=== PATIENT | female | born 1975 | race Caucasian/White ===

== ENCOUNTER → 2016-08-20 | Outpatient (CLI) | payer OTHER ==
[~2016-08-20] MED LIST: ACHD5005 PO; ALBU2.5V4; AZIT500T5; CEFD300C3 PO; CEFU500T63; MAGN100T6 PO; METO-352; MULT-646 PO; NEBI5TAB8 PO; NFPRILOC40 PO; NITR-65 PO; ONDAN4ODT PO; SACC250C9 PO; TURM500C7 PO
--- OUTSIDE RECORDS SUMMARY | 2016-08-20 13:15 | XMS REPORT | Continuity of Care Document ---
Author Author [facility] Organization 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 Role Phone WENDY LANDA DO PCP Insurance Providers Payer Name Policy Number Subscriber Name Relationship [employer] [id number] Lian Rodriguez Self / Same As Patient Advance Directives Directive Response Recorded Date/Time Advance Directives No 12/08/15 10:40am Resuscitation Status Full Code 12/08/15 10:40am Chief Complaint and Reason for Visit Chief Complaint Head/Cervical Problems Reason for Visit Acute sinusitis Problems Active Problems Medical Problem Onset Date Status Acute sinusitis Unknown Acute Chest pain Unknown Acute Medications Current Home Medications Medication Dose Units Route Directions Days/Qty Instructions Start Date Multivits,Th W-Fe,Other Min 1 Each 1 Each Oral Daily 07/21/15 Omeprazole 40 Mg 40 Mg Oral Daily 07/21/15 Metoprolol Succinate 50 Mg 12/08/15 Cefdinir (Omnicef) 300 Mg 300 Mg Oral Twice A Day 14 12/08/15 Past Home Medications Medication Directions Ordered Status Ondansetron Hcl 4 Mg Tab, 4 Mg Oral Every 4HRS 02/21/09 Discontinued Nitrofurantoin Macrocrystals 100 Mg Capsule, 1 Each Oral Twice A Day Discontinued Acetaminophen/Hydrocodone Bitart 1 Each Tablet, 1 - 2 Each Oral Q 4 Hours Prn Pain 05/29/11 Discontinued Albuterol Sulfate 2.5 Mg/3 Ml Vial.neb, 07/21/15 Discontinued Cefuroxime Axetil 500 Mg Tablet, 07/21/15 Discontinued Azithromycin 500 Mg Tablet, 07/21/15 Discontinued Magnesium Citrate 100 Mg Tablet, 100 Mg Oral Daily 07/21/15 Discontinued Turmeric Root Extract 500 Mg Capsule, 500 Mg Oral Daily 07/21/15 Discontinued Saccharomyces Boulardii 250 Mg Capsule, 250 Mg Oral Daily 07/21/15 Discontinued Nebivolol Hcl 5 Mg Tablet, 5 Mg Oral Daily 07/21/15 Discontinued Cefdinir (Omnicef) 300 Mg Capsule, 300 Mg Oral Twice A Day 07/21/15 Discontinued Social History Social History Problem Response Recorded Date/Time Alcohol Use Denies Use 12/08/2015 10:40am Recreational Drug Use No 12/08/2015 10:40am Recent Foreign Travel No 12/08/2015 10:34am Recent Infectious Disease Exposure No 12/08/2015 10:34am Hospitalization with Isolation Denies 12/08/2015 10:34am Smoking Status Never a Smoker 12/08/2015 10:40am Query Response Start Date Stop Date Smoking Status Never a Smoker Hospital Discharge Instructions No hospital discharge instructions. Plan of Care Discharge Date 12/08/15 11:30am Disposition 01 HOME, SELF-CARE Condition at Discharge Stable/Unchanged Instructions/Education Provided Sinusitis (ED) Cluster Headache (ED) Prescriptions See Medication Section Referrals WENDY LANDA DO - Primary Care Physician Additional Instructions/Education All discharge instructions reviewed with patient and/or family. Voiced understanding. Use Tylenol or ibuprofen for fever aches and pains Take Omnicef as directed Functional Status Query Response Date Recorded Patient Orientation Person Place Time Situation December 08, 2015 10:50am Allergies, Adverse Reactions, Alerts Allergen Type Severity Reaction Status Last Updated Penicillins ([id number]) Allergy Unknown Active 07/21/15 Immunizations No immunization records. Vital Signs Acute Vital Signs Vital Response Date/Time Temperature (Fahrenheit) 98 degrees F (97.6 - 99.5) 12/08/2015 10:34am Temperature (Calculated Celsius) 36.6696 degrees C (36.4 - 37.5) 12/08/2015 10:34am Temperature Source Temporal 12/08/2015 10:34am Pulse Rate (adult) 98 bpm (60 - 90) 12/08/2015 10:34am Respiratory Rate 18 bpm (12 - 24) 12/08/2015 10:34am O2 Sat by Pulse Oximetry 100 % (88 - 100) 12/08/2015 10:34am Blood Pressure 137/76 mm Hg 12/08/2015 10:34am Blood Pressure Mean 96 mm Hg 12/08/2015 10:34am Pain Numeric Pain Scale 8 12/08/2015 10:34am Height (Feet) 5 feet 12/08/2015 10:34am Height (Inches) 10 inches 12/08/2015 10:34am Height (Calculated Centimeters) 177.059800 cm 12/08/2015 10:34am Weight (Pounds) 300 pounds 12/08/2015 10:34am Weight (Calculated Kilograms) 136.468020 kilograms 12/08/2015 10:34am Height 5 ft 10 in Weight 300 lb Body Mass Index 43.0 kg/m^2 Results No known relevant diagnostic tests, laboratory data and/or discharge summary. Procedures No known history of procedures. Encounters Encounter Location Arrival/Admit Date Discharge/Depart Date Attending Provider Registered Emergency Room [facility] 12/08/15 10:33am DEONNA GUZMAN MD Recent Diagnosis
[2016-08-21 13:45] LABS: DIL RUSSELL VIPER VENOM SCREEN 0.74 ratio (0.00-1.20)
[2016-08-21 13:46] LABS: LUPUS ANTICOAGULANT PTT 34.6 Seconds (24.4-41.7)
[2016-08-22 11:55] LABS: PT REF RML 13.6 SEC (10.5-15.7)
[2016-08-22 11:59] LABS: PTT LUPUS 33.2 SEC (20.6-39.2)
[2016-08-25 11:24] LABS: CLIN PATHOLOGY REPORT FOOTNOTE
== END ==
LOC: LAB 13:11
PROVIDERS: ATTEND Family Medicine
DX: M25.50 Pain in unspecified joint (principal)
CPT/HCPCS: 36415; 84443; 85610; 85613; 85652; 85705; 85730; 86038; 86146; 86147

== ENCOUNTER → 2016-08-21 | Outpatient (CLI) | payer OTHER ==
--- OUTSIDE RECORDS SUMMARY | 2016-08-21 09:20 | XMS REPORT | Continuity of Care Document ---
Author Author [facility] Organization [facility] Address Unknown Phone Unavailable Care Team Providers Care Public Health Physician Name Role Phone WENDY LANDA DO PCP Insurance Providers Payer Name Policy Number Subscriber Name Relationship [employer] [id number] Lian Rodriguez Self / Same As Patient [...] Type Severity Reaction Status Last Updated Penicillins ([id number]) Allergy Unknown Active 07/21/15 Immunizations No immunization [...] 10 inches 12/08/2015 10:34am Height (Calculated Centimeters) 177.623020 cm 12/08/2015 10:34am Weight (Pounds) 300 pounds 12/08/2015 10:34am Weight (Calculated Kilograms) 136.057479 kilograms 12/08/2015 10:34am Height 5 ft 10 in Weight 300 lb Body Mass Index 43.0 kg/m^2 Results No known relevant diagnostic tests, laboratory data and/or discharge summary. Procedures No known history of procedures. Encounters Encounter Location Arrival/Admit Date Discharge/Depart Date Attending Provider Registered Emergency Room [facility] 12/08/15 10:33am DEONNA GUZMAN MD Recent Diagnosis
--- NOTE | 2016-08-21 15:47 | Diagnostic Imaging Report ---
PROCEDURE: CT head without contrast. TECHNIQUE: Multiple contiguous axial images were obtained through the brain without the use of intravenous contrast. INDICATION: Head injury. History of left parietal craniotomy. FINDINGS: There is a left parietal craniotomy and plate and screws fixation of the skull. There is no intracranial hemorrhage, edema, or mass effect. The brain parenchyma and flores-white matter differentiation appear preserved. There is no hydrocephalus. No extra-axial fluid collection or hemorrhage. The visualized portions of the orbits and paranasal sinuses appear clear. The frontal sinuses are underdeveloped. IMPRESSION: No acute process. Dictated by: Dictated on workstation # [id number]
== END ==
LOC: RAD 09:18
PROVIDERS: ATTEND Family Medicine
DX: S09.90XA Unspecified injury of head, initial encounter (principal); X58.XXXA Exposure to other specified factors, initial encounter; Y99.8 Other external cause status
CPT/HCPCS: 70450

== ENCOUNTER → 2016-10-24 | Outpatient (CLI) | payer OTHER ==
--- NOTE | 2016-10-24 11:26 | Diagnostic Imaging Report ---
INDICATION: Shortness of breath and chest pain. PA and lateral chest. Heart size and pulmonary vascularity are normal. Lungs are clear. There are no effusions or pneumothoraces. IMPRESSION: Negative chest. Dictated by: Dictated on workstation # [id number]
[2016-10-24 11:32] LABS: BASOPHILS % (AUTO) 1 % (0-10); EOSINOPHILS # (AUTO) 0.2 10^3/uL (0.0-0.3); EOSINOPHILS % (AUTO) 3 % (0-10); LYMPHOCYTES # (AUTO) 2.4 X 10^3 (1.0-4.0); LYMPHOCYTES % (AUTO) 35 % (12-44); MEAN CORPUSCULAR HEMOGLOBIN 27 PG (25-34); MEAN CORPUSCULAR HGB CONC 33 G/DL (32-36); MEAN CORPUSCULAR VOLUME 84 FL (80-99); MEAN PLATELET VOLUME 11.4 FL (7.4-10.4); MONOCYTES # (AUTO) 0.4 X 10^3 (0.0-1.0); MONOCYTES % (AUTO) 6 % (0-12); NEUTROPHILS # (AUTO) 3.9 X 10^3 (1.8-7.8); NEUTROPHILS % (AUTO) 56 % (42-75); PLATELET COUNT 265 10^3/uL (130-400); RED BLOOD COUNT 5.37 10^6/uL (4.35-5.85); RED CELL DISTRIBUTION WIDTH 14.6 % (10.0-14.5); WHITE BLOOD COUNT 6.9 10^3/uL (4.3-11.0)
[2016-10-24 12:15] LABS: ALANINE AMINOTRANSFERASE 29 U/L (0-55); ALBUMIN 4.1 G/DL (3.2-4.5); ANION GAP 7 MMOL/L (5-14); ASPARTATE AMINO TRANSFERASE 20 U/L (5-34); BILIRUBIN,TOTAL 0.4 MG/DL (0.1-1.0); BLOOD UREA NITROGEN 9 MG/DL (7-18); BUN/CREATININE RATIO 13; CALCIUM 9.2 MG/DL (8.5-10.1); CARBON DIOXIDE 26 MMOL/L (21-32); CHLORIDE 104 MMOL/L (98-107); CREATINE KINASE 76 U/L (29-168); GFR ESTIMATED > 60; GLUCOSE 83 MG/DL (70-105); POTASSIUM 3.8 MMOL/L (3.6-5.0); SODIUM 137 MMOL/L (135-145); TOTAL PROTEIN 7.4 G/DL (6.4-8.2)
[2016-10-24 12:38] LABS: MYOGLOBIN SERUM 24.3 NG/ML (10.0-92.0); THYROID STIMULATING HORMONE 3.06 UIU/ML (0.35-4.94); TROPONIN I < 0.30 NG/ML (<0.30)
== END ==
LOC: CARD 10:57
PROVIDERS: ATTEND Nurse Practitioner Family
DX: R06.02 Shortness of breath (principal); R07.89 Other chest pain
CPT/HCPCS: 36415; 71020; 80053; 82550; 82553; 83874; 83880; 84439; 84443; 84484; 85025; 93005

== ENCOUNTER → 2017-03-18 | Outpatient (CLI) | payer OTHER ==
--- NOTE | 2017-03-18 10:59 | Diagnostic Imaging Report ---
PROCEDURE: CT abdomen and pelvis without contrast. TECHNIQUE: Multiple contiguous axial images were obtained through the abdomen and pelvis without the use of intravenous contrast. INDICATION: Upper abdominal pain. FINDINGS: The lung bases appear clear. The liver, the pancreas, the adrenal glands, and the gallbladder appear unremarkable for an unenhanced exam. The spleen is 14.1 x 5.5 x 10.5 cm. No hydronephrosis is seen. In the right kidney, there is a fluid attenuation lesion measuring 2.3 cm suggestive of a cyst. This was seen and appeared simple based on ultrasound of the kidneys from 04/04/2016. No urinary tract stone is identified. Calcifications of the pelvis appears to be related to phleboliths. There is an IUD in the uterus which appears to be in good position. The uterus and adnexa appear grossly unremarkable. There is no bowel obstruction. The appendix appears normal. Small to moderate amounts of fecal material seen in the colon. The SI joints demonstrate mild degenerative changes and vacuum phenomenon seen. IMPRESSION: Borderline splenic size. No acute process. Dictated by: Dictated on workstation # [id number]
--- NOTE | 2017-03-18 10:59 | Diagnostic Imaging Report ---
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 Tumor was removed with a plate placed about a year ago. Couple of months ago patient starting having pain just below plate. Patient has intense headache last week and nausea. Exam: Axial CT scan of the brain performed without IV contrast. Comparison: Head CT without IV contrast dated 08/21/2016. Findings: Again seen postop changes with left posterior skull craniotomy and resection of previously seen lesion. Skull plate is seen in the area. There is slight progression of bony growth in the area which may represent callus formation. There is no masslike changes seen. There is no significant extracranial scalp or intracranial abnormality beneath the postop area. Otherwise, the skull, extracranial soft tissue, and orbits are unremarkable. There is no evidence of acute cerebral infarct, intracranial hemorrhage, or gross mass effect. There is normal flores-white matter distinction. The brain parenchymal volume appears appropriate for patient's age. There is no significant midline shift or herniation. There is no evidence of hydrocephalus. The basal cisterns are unremarkable. The paranasal sinuses are unremarkable. Impression: 1: There is no evidence of acute intracranial process. 2: Left posterior skull craniotomy/resection with metallic plate placed. There is no evidence of significant abnormality in the area. There is no masslike growth seen. Likely mild callus formation seen in the craniotomy site. 3: Otherwise unremarkable CT scan of the brain. Dictated by: Dictated on workstation # [id number]
== END ==
LOC: RAD 10:16
PROVIDERS: ATTEND Family Medicine
DX: R51 Headache (principal); R10.10 Upper abdominal pain, unspecified; Z98.890 Other specified postprocedural states
CPT/HCPCS: 70450; 74176

== ENCOUNTER → 2017-03-19 | Outpatient (CLI) | payer OTHER ==
[2017-03-19 08:04] LABS: BASOPHILS % (AUTO) 1 % (0-10); EOSINOPHILS # (AUTO) 0.3 10^3/uL (0.0-0.3); EOSINOPHILS % (AUTO) 4 % (0-10); LYMPHOCYTES # (AUTO) 2.3 X 10^3 (1.0-4.0); LYMPHOCYTES % (AUTO) 36 % (12-44); MEAN CORPUSCULAR HEMOGLOBIN 28 PG (25-34); MEAN CORPUSCULAR HGB CONC 33 G/DL (32-36); MEAN CORPUSCULAR VOLUME 85 FL (80-99); MEAN PLATELET VOLUME 10.8 FL (7.4-10.4); MONOCYTES # (AUTO) 0.5 X 10^3 (0.0-1.0); MONOCYTES % (AUTO) 7 % (0-12); NEUTROPHILS # (AUTO) 3.3 X 10^3 (1.8-7.8); NEUTROPHILS % (AUTO) 52 % (42-75); PLATELET COUNT 258 10^3/uL (130-400); RED BLOOD COUNT 5.26 10^6/uL (4.35-5.85); RED CELL DISTRIBUTION WIDTH 14.5 % (10.0-14.5); WHITE BLOOD COUNT 6.4 10^3/uL (4.3-11.0)
[2017-03-19 08:18] LABS: PROTHROMBIN TIME PATIENT 13.2 SEC (12.2-14.7)
[2017-03-19 08:27] LABS: ALANINE AMINOTRANSFERASE 29 U/L (0-55); ALBUMIN 3.9 GM/DL (3.2-4.5); ANION GAP 7 MMOL/L (5-14); ASPARTATE AMINO TRANSFERASE 17 U/L (5-34); BILIRUBIN,TOTAL 0.4 MG/DL (0.1-1.0); BLOOD UREA NITROGEN 9 MG/DL (7-18); BUN/CREATININE RATIO 13; CALCIUM 9.2 MG/DL (8.5-10.1); CARBON DIOXIDE 27 MMOL/L (21-32); CHLORIDE 105 MMOL/L (98-107); CREATININE SERUM 0.71 MG/DL (0.60-1.30); GFR ESTIMATED > 60; GLUCOSE 94 MG/DL (70-105); SODIUM 139 MMOL/L (135-145); TOTAL PROTEIN 7.5 GM/DL (6.4-8.2)
[2017-03-19 08:47] LABS: THYROID STIMULATING HORMONE 2.62 UIU/ML (0.35-4.94)
== END ==
LOC: LAB 07:43
PROVIDERS: ATTEND Family Medicine
DX: R53.83 Other fatigue (principal); R35.8 Other polyuria; R63.1 Polydipsia; N93.9 Abnormal uterine and vaginal bleeding, unspecified
CPT/HCPCS: 36415; 80053; 83036; 83540; 84443; 85025; 85610; 85730

== ENCOUNTER 2017-09-07 14:44 | Emergency (ER) | payer OTHER ==
[~2017-09-07] VITALS: Ht 177.8 cm; Wt 136.2 kg
[2017-09-07 15:22] LABS: BASOPHILS % (AUTO) 0 % (0-10); EOSINOPHILS # (AUTO) 0.2 10^3/uL (0.0-0.3); EOSINOPHILS % (AUTO) 3 % (0-10); HEMATOCRIT 44 % (35-52); HEMOGLOBIN 14.6 G/DL (11.5-16.0); LYMPHOCYTES % (AUTO) 38 % (12-44); MEAN CORPUSCULAR HEMOGLOBIN 28 PG (25-34); MEAN CORPUSCULAR HGB CONC 33 G/DL (32-36); MEAN CORPUSCULAR VOLUME 85 FL (80-99); MEAN PLATELET VOLUME 10.9 FL (7.4-10.4); MONOCYTES # (AUTO) 0.6 X 10^3 (0.0-1.0); MONOCYTES % (AUTO) 8 % (0-12); NEUTROPHILS % (AUTO) 51 % (42-75); PLATELET COUNT 278 10^3/uL (130-400); RED CELL DISTRIBUTION WIDTH 14.1 % (10.0-14.5)
[2017-09-07] MEDS ORDERED: CAL/MAG/ZINC PO (15:29)
[2017-09-07] MEDS ORDERED: FAMO40TA6 PF (15:29)
[2017-09-07] MEDS ORDERED: KETOROLAC 30 MG/ML VIAL IVP ONE (15:30)
[2017-09-07] MEDS ORDERED: ASPIRIN 81 MG CHEW (CHILDREN'S ASA) PO ONE (15:30)
--- NOTE | 2017-09-07 15:31 | ED Chest Pain ---
General Chief Complaint: Chest Pain Stated Complaint: CP X 1DAY Nursing Triage Note: C/O OF R-CHEST ET SHOULDER PAIN STARTING LAST NIGHT @5 PM. RADIATES TO L-CHEST ET SHOULDER. HAS HX OF REFLUX BUT SAYS IT'S NOT FELT LIKE THIS BEFORE. STATES PAIN IS CONSTANT ET SHARP. RATES R-CHEST AT "7" Nursing Sepsis Screen: No Definite Risk Source: patient History of Present Illness Date Seen by Provider: Sep 07, 2017 Time Seen by Provider: 15:10 Initial Comments PT ARRIVES VIA POV FROM HOME C/O RIGHT UPPER CHEST PAIN SINCE 1700 LAST PM--DOES NOT RECALL WHAT SHE WAS DOING WHEN PAIN BEGAN, BUT WAS "JUST HANGING OUT" PAIN IN CHEST IS CONSTANT, AND NOTHING WORSENS OR IMPROVES PAIN --HAS BEEN WORSE SINCE MID MORNING TODAY OCCASIONALLY HAS RIGHT, THEN LEFT SHOULDER PAIN--THOSE SYMPTOMS COME AND GO NO CHEST PAIN OR PAIN WITH BREATHING NO SHORTNESS OF BREATH OCCASIONALLY IT FEELS LIKE HER HEART IS BEATING FAST, BUT HAS NOT CHECKED HER PULSE AT ANY TIME NO SWELLING IN LEGS/ FEET OR PAIN IN CALVES NO SWEATS HAS HAD SLIGHTLY DECREASED APPETITE AND SLIGHT NAUSEA TODAY, BUT HAS CONTINUED TO EAT NORMAL--LAST ATE AROUND 2 HOURS AGO NO FEVER NO COUGH OR RECENT ILLNESS PT HAS FIBROMYALGIA AND GERD--TOOK NORMAL DOSE OF PEPCID THIS AM, OTHERWISE HAS NOT TAKEN ANYTHING ELSE FOR SYMPTOMS/ HAS NOT TAKEN ANYTHING FOR PAIN 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 LANDA Allergies and Home Medications Allergies Coded Allergies: omeprazole (Unverified Allergy, Severe, 09/07/17) FELT LIKE SHE COULDN'T BREATH Penicillins (Unverified Allergy, Unknown, 07/21/15) Home Medications Cyclobenzaprine HCl 10 Mg Tablet, 10 MG PO Q8H Prescribed by: REMINGTON LAUGHLIN on 09/07/17 162 Famotidine 40 Mg Tablet, 40 MG PF BID, (Reported) Methylprednisolone 4 Mg Tab.ds.pk, 4 MG PO UD Prescribed by: REMINGTON LAUGHLIN on 09/07/17 162 Multivits,Th W-Fe,Other Min 1 Each Tablet, 1 EACH PO DAILY, (Reported) [Héctor/Mag/Zinc] , 1 CAP PO DAILY, (Reported) Patient Home Medication List Home Medication List Reviewed: Yes Review of Systems Constitutional: No chills, No diaphoresis, No dizziness, No fever EENTM: No Symptoms Reported Respiratory: No Symptoms Reported Cardiovascular: See HPI, Chest Pain, Denies Edema, Denies Lightheadedness, Palpitations, Denies Syncope Gastrointestinal: See HPI, Denies Abdominal Pain, Denies Constipated, Denies Diarrhea, Nausea, Poor Appetite, Denies Poor Fluid Intake, Denies Vomiting Genitourinary: No Symptoms Reported Musculoskeletal: see HPI, No back pain, other (BILATERAL SHOULDER PAIN ) Skin: no symptoms reported Psychiatric/Neurological: No Symptoms Reported Endocrine: No Symptoms Reported Hematologic/Lymphatic: No Symptoms Reported Past Ickyczx-Wylwtr-Uvwplr Hx Patient Social History Alcohol Use: Denies Use Recreational Drug Use: No Smoking Status: Never a Smoker 2nd Hand Smoke Exposure: No Recent Foreign Travel: No Contact w/Someone Who Travel: No Recent Infectious Disease Expo: No Physical Abuse: No Sexual Abuse: No Surgeries History of Surgeries: Yes (BENIGN TUMOR REMOVED FROM SKULL 2 YEARS AGO) Surgeries: Section Respiratory History of Respiratory Disorde: No Cardiovascular History of Cardiac Disorders: Yes Cardiac Disorders: Hypertension Neurological History of Neurological Disord: Yes (BENIGN TUMOR REMOVED FROM SKULL. OCCASIONALLY HAS HEAD PAIN AT THIS SITE.) Genitourinary History of Genitourinary Disor: No Gastrointestinal History of Gastrointestinal Di: Yes Gastrointestinal Disorders: Gastroesophageal Reflux Musculoskeletal History of Musculoskeletal Dis: Yes Musculoskeletal Disorders: Fibromyalgia Endocrine History of Endocrine Disorders: No HEENT History of HEENT Disorders: No Cancer History of Cancer: No Psychosocial History of Psychiatric Problem: No Suicide Risk Score: 0 Integumentary History of Skin or Integumenta: No Blood Transfusions History of Blood Disorders: No Family Medical History Significant Family History: No Pertinent Family Hx Physical Exam Vital Signs Vital Signs - First Documented 09/07/17 14:50 Temp 98.0 Pulse 92 Resp 18 B/P (MAP) 152/83 (106) Pulse Ox 95 O2 Delivery Room Air Capillary Refill : Less Than 3 Seconds General Appearance: No Apparent Distress, Obese HEENT: PERRL/EOMI Neck: Full Range of Motion, Normal Inspection, Non Tender, Supple, No Carotid Bruit, No JVD Respiratory: Normal Breath Sounds, No Accessory Muscle Use, No Respiratory Distress, Other (TENDERNESS TO RIGHT UPPER CHEST AND BILATERAL ANTERIOR SHOULDERS--PALPATION REPRODUCES PAIN ) Cardiovascular: Regular Rate, Rhythm, No Gallop, No JVD, No Murmur, Normal Peripheral Pulses, Other (TRACE EDEMA BILATERALLY) Gastrointestinal: Normal Bowel Sounds, No Organomegaly, No Pulsatile Mass, Non Tender, Soft Extremity: Normal Capillary Refill, Normal Range of Motion, Non Tender, No Calf Tenderness, Pedal Edema (TRACE BILATERALLY) Neurologic/Psychiatric: Alert, Oriented x3, No Motor/Sensory Deficits, Normal 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, 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 Norm as Tested Skin: Normal Color, Warm/Dry, No Rash Progress/Results/Core Measures Results/Orders Lab Results Laboratory Tests Test 09/07/17 15:03 Range/Units White Blood Count 8.0 4.3-11.0 10^3/uL Red Blood Count 5.20 4.35-5.85 10^6/uL Hemoglobin 14.6 11.5-16.0 G/DL Hematocrit 44 35-52 % Mean Corpuscular Volume 85 80-99 FL Mean Corpuscular Hemoglobin 28 25-34 PG Mean Corpuscular Hemoglobin Concent 33 32-36 G/DL Red Cell Distribution Width 14.1 10.0-14.5 % Platelet Count 278 130-400 10^3/uL Mean Platelet Volume 10.9 H 7.4-10.4 FL Neutrophils (%) (Auto) 51 42-75 % Lymphocytes (%) (Auto) 38 12-44 % Monocytes (%) (Auto) 8 0-12 % Eosinophils (%) (Auto) 3 0-10 % Basophils (%) (Auto) 0 0-10 % Neutrophils # (Auto) 4.0 1.8-7.8 X 10^3 Lymphocytes # (Auto) 3.0 1.0-4.0 X 10^3 Monocytes # (Auto) 0.6 0.0-1.0 X 10^3 Eosinophils # (Auto) 0.2 0.0-0.3 10^3/uL Basophils # (Auto) 0.0 0.0-0.1 10^3/uL Prothrombin Time 13.9 12.2-14.7 SEC INR Comment 1.1 0.8-1.4 Activated Partial Thromboplast Time 32 24-35 SEC Sodium Level 136 135-145 MMOL/L Potassium Level 3.8 3.6-5.0 MMOL/L Chloride Level 101 98-107 MMOL/L Carbon Dioxide Level 30 21-32 MMOL/L Anion Gap 5 5-14 MMOL/L Blood Urea Nitrogen 9 7-18 MG/DL Creatinine 0.71 0.60-1.30 MG/DL Estimat Glomerular Filtration Rate > 60 BUN/Creatinine Ratio 13 Glucose Level 94 70-105 MG/DL Calcium Level 9.1 8.5-10.1 MG/DL Magnesium Level 2.0 1.8-2.4 MG/DL Total Bilirubin 0.2 0.1-1.0 MG/DL Aspartate Amino Transf (AST/SGOT) 22 5-34 U/L Alanine Aminotransferase (ALT/SGPT) 33 0-55 U/L Alkaline Phosphatase 70 40-136 U/L Myoglobin 24.4 10.0-92.0 NG/ML Troponin I < 0.30 <0.30 NG/ML B-Type Natriuretic Peptide < 10.0 <100.0 PG/ML Total Protein 7.4 6.4-8.2 GM/DL Albumin 4.1 3.2-4.5 GM/DL Lipase 35 8-78 U/L Serum Test, Qualitative NEGATIVE NEGATIVE My Orders Orders - REMINGTON LAUGHLIN DO BNP (09/07/17 15:22) Hcg,Qualitative Serum (09/07/17 15:22) Lipase (09/07/17 15:22) Aspirin Chewable Tablet (Baby Aspirin Ch (09/07/17 15:30) Ketorolac Injection (Toradol Injection) (09/07/17 15:30) Medications Given in ED Current Medications Medications Dose Ordered Sig/Milagro Route Start Time Stop Time Status Last Admin Dose Admin Aspirin 324 mg ONCE ONCE PO 09/07/17 15:30 09/07/17 15:31 DC 09/07/17 15:33 324 MG Ketorolac Tromethamine 30 mg ONCE ONCE IVP 09/07/17 15:30 09/07/17 15:31 DC 09/07/17 15:33 30 MG Vital Signs/I&O Vital Sign - Last 12Hours 09/07/17 09/07/17 14:50 16:33 Temp 98.0 98.0 Pulse 92 82 Resp 18 18 B/P (MAP) 152/83 (106) 142/80 (106) Pulse Ox 95 98 O2 Delivery Room Air Blood Pressure Mean: 106 Progress Note : Progress Note PAIN EASED WITH TORADOL ECG Initial ECG Impression Date: Sep 07, 2017 Initial ECG Impression Time: 14:50 Initial ECG Rate: 88 Initial ECG Rhythm: Normal Sinus Initial ECG Comparisson: Unchanged Diagnostic Imaging Comments CXR--NO ACUTE PROCESS, PER RADIOLOGIST REPORT @ 1617 Reviewed: Reviewed by Me Departure Impression Impression: Primary Impression: Right-sided chest wall pain Additional Impressions: Fibromyalgia Costochondritis Disposition: HOME, SELF-CARE Condition: Improved Departure-Patient Inst. Referrals: WENDY LANDA DO (PCP/Family) Primary Care Physician Patient Instructions: Chest Pain That Is Not Caused by the Heart (DC), Chest Pain (DC), Heart Healthy Diet, Costochondritis (DC) Add. Discharge Instructions: ALTERNATE ICE AND HEAT TO SORE AREAS AT 20 MINUTE INTERVALS CONTINUE YOUR HOME MEDICATIONS PRESCRIBED FOLLOW UP WITH YOUR DR IN 2-3 DAYS FOR FURTHER CARE RETURN TO ER IF WORSE All discharge instructions reviewed with patient and/or family. Voiced understanding. Scripts Cyclobenzaprine HCl (Cyclobenzaprine HCl) 10 Mg Tablet 10 MG PO Q8H, #15 TAB Prov: REMINGTON LAUGHLIN DO 09/07/17 Methylprednisolone (Medrol) 4 Mg Tab.ds.pk 4 MG PO UD, #1 PKG Prov: REMINGTON LAUGHLIN DO 09/07/17 REMINGTON LAUGHLIN DO Sep 07, 2017 15:31
[2017-09-07 15:32] LABS: INR 1.1 (0.8-1.4); PROTHROMBIN TIME PATIENT 13.9 SEC (12.2-14.7)
[2017-09-07 15:40] LABS: CARBON DIOXIDE 30 MMOL/L (21-32); CHLORIDE 101 MMOL/L (98-107); CREATININE SERUM 0.71 MG/DL (0.60-1.30); POTASSIUM 3.8 MMOL/L (3.6-5.0); SODIUM 136 MMOL/L (135-145)
--- NOTE | 2017-09-07 15:40 | Diagnostic Imaging Report ---
Patient History: Right chest and shoulder pain radiating to the left chest. Technique: Single frontal view of the chest Comparison: 10/24/2016 FINDINGS: The lung volumes are mildly large. No focal consolidation is seen. No large pleural effusion or pneumothorax is seen. The cardiomediastinal silhouette is normal in size and contour. No acute osseous abnormality is seen. IMPRESSION: No acute pulmonary abnormality seen. Dictated by: Dictated on workstation # [id number]
[2017-09-07 15:41] LABS: ALANINE AMINOTRANSFERASE 33 U/L (0-55); ALBUMIN 4.1 GM/DL (3.2-4.5); ALKALINE PHOSPHATASE 70 U/L (40-136); BILIRUBIN,TOTAL 0.2 MG/DL (0.1-1.0); BUN/CREATININE RATIO 13; CALCIUM 9.1 MG/DL (8.5-10.1); GFR ESTIMATED > 60; GLUCOSE 94 MG/DL (70-105); TOTAL PROTEIN 7.4 GM/DL (6.4-8.2)
[2017-09-07 15:46] LABS: MYOGLOBIN SERUM 24.4 NG/ML (10.0-92.0)
[2017-09-07] MEDS ORDERED: CYCL10TA9 PO (16:22)
[2017-09-07] MEDS ORDERED: METH4TAB PO (16:22)
[2017-09-07 16:33] VITALS: BP 142/80
== END 2017-09-07 16:33 | disposition home or self-care (01) ==
LOC: EDUNIT# 14:44 → ER 14:45
DX: M94.0 Chondrocostal junction syndrome [Tietze] (principal); M79.1 Myalgia; K21.9 Gastro-esophageal reflux disease without esophagitis; I10 Essential (primary) hypertension; Z87.59 Personal history of other complications of pregnancy, childbirth and the puerperium; Z86.011 Personal history of benign neoplasm of the brain; Z88.8 Allergy status to other drugs, medicaments and biological substances; Z88.0 Allergy status to penicillin
CPT/HCPCS: 36415; 71045; 80053; 83690; 83735; 83874; 83880; 84484; 84703; 85025; 85610; 85730; 93005; 93041; 96374

== ENCOUNTER → 2018-03-03 | Outpatient (CLI) | payer OTHER ==
[~2018-03-03] MED LIST changes: +CAL/MAG/ZINC PO; +CYCL10TA9 PO; +FAMO40TA6 PF; +METH4TAB PO
--- NOTE | 2018-03-03 16:41 | Diagnostic Imaging Report ---
EXAMINATION: PA and lateral chest at 04:32 p.m. INDICATION: Chest pressure. FINDINGS: The heart size is within normal limits and stable when compared to 09/07/2017. The lungs are clear. There is no evidence for failure, pneumonia, or for a pleural effusion. The mediastinum is not widened. The osseous structures are intact. IMPRESSION: There is no evidence for an acute cardiopulmonary abnormality. Dictated by: Dictated on workstation # [id number]
--- NOTE | 2018-03-03 16:50 | Diagnostic Imaging Report ---
PROCEDURE: CT head without contrast. TECHNIQUE: Multiple contiguous axial images were obtained through the brain without the use of intravenous contrast. INDICATION: Head pain, previous surgery. Exam compared 03/18/2017. FINDINGS: A focal left posterior parietal cranial defect with an overlying surgical repair unchanged. No new or acute calvarial pathology is found. Paranasal sinuses, orbits and mastoids unremarkable. The brain appeared normal. There is no hemorrhage, hydrocephalus, edema, mass or mass effect. Basilar cisterns patent. There is no sulcal effacement. IMPRESSION: Stable postsurgical changes to the calvarium. No acute-appearing abnormality. Dictated by: Dictated on workstation # [id number]
== END ==
LOC: RAD 15:47
PROVIDERS: ATTEND Internal Medicine
DX: R51 Headache (principal); R07.89 Other chest pain; Z98.890 Other specified postprocedural states
CPT/HCPCS: 70450; 71046

== ENCOUNTER → 2018-03-09 | Outpatient (CLI) | payer OTHER ==
--- NOTE | 2018-03-09 12:59 | Diagnostic Imaging Report ---
INDICATION: Routine screening. Comparison is made with prior mammogram from 03/26/2016 and 04/15/2011. 2-D and 3-D bilateral screening mammography was performed. The current study was also evaluated with a Computer Aided Detection (CAD) system. 3-D tomosynthesis was also performed and reviewed. FINDINGS: Both breasts are heterogeneously dense, limiting the sensitivity of mammography. The overall parenchymal pattern appears stable. No dominant mass or malignant-appearing microcalcifications are seen. The axillae are unremarkable. IMPRESSION: No mammographic features suspicious for malignancy are identified. ACR BI-RADS Category 1: Negative. Result letter will be mailed to the patient. Note: At least 10% of breast cancer is not imaged by mammography. Dictated by: Dictated on workstation # [id number]
== END ==
LOC: RAD 08:55
PROVIDERS: ATTEND Internal Medicine
DX: Z12.31 Encounter for screening mammogram for malignant neoplasm of breast (principal)
CPT/HCPCS: 77067

== ENCOUNTER → 2020-01-12 | Outpatient (CLI) | payer OTHER ==
[~2020-01-12] MED LIST changes: -AZIT500T5; +AZIT500T9
--- NOTE | 2020-01-12 12:11 | Diagnostic Imaging Report ---
PROCEDURE: US Renal Bilateral. TECHNIQUE: Multiple real-time grayscale images were obtained over the kidneys in various projections bilaterally. INDICATION: Hypertrophy of the kidney. Right kidney measures 12.6 x 5.4 x 5.0 cm and the left kidney measures 12.4 x 4.4 x 5.3 cm. Cortical thickness and echogenicity is normal. No calculi are seen. There is no hydronephrosis. Bilateral ureteral jets within the urinary bladder are noted. IMPRESSION: Unremarkable renal ultrasound. Dictated by: Dictated on workstation # [id number]
[2020-01-12 12:17] LABS: PROTHROMBIN TIME PATIENT 13.5 SEC (12.2-14.7)
[2020-01-12 12:22] LABS: MAGNESIUM 2.1 MG/DL (1.6-2.4)
[2020-01-12 12:42] LABS: TSH (THYROID ANALYZER) 1.84 UIU/ML (0.35-4.94)
== END ==
LOC: RAD 10:28
PROVIDERS: ATTEND Nurse Practitioner Family
DX: N28.81 Hypertrophy of kidney (principal); D68.8 Other specified coagulation defects; R63.1 Polydipsia; H04.123 Dry eye syndrome of bilateral lacrimal glands; R53.83 Other fatigue; E28.2 Polycystic ovarian syndrome; E01.0 Iodine-deficiency related diffuse (endemic) goiter; R00.2 Palpitations; M79.7 Fibromyalgia
CPT/HCPCS: 36415; 76770; 82088; 82533; 82627; 82672; 83735; 84146; 84403; 84443; 84550; 85610; 86038; 86039

== ENCOUNTER → 2020-01-27 | Outpatient (CLI) | payer BC, OTHER | LOC: LAB 15:55 | PROVIDERS: ATTEND Nurse Practitioner Family | DX: I74.9 Embolism and thrombosis of unspecified artery (principal); I89.0 Lymphedema, not elsewhere classified; M79.10 Myalgia, unspecified site | CPT/HCPCS: 36415; 83615; 85220; 85300; 85303; 85306; 85384; 85610; 85613; 85705; 85730; 85810; 86146; 86147 ==

== ENCOUNTER → 2020-12-18 | Outpatient (CLI) | payer BC ==
--- NOTE | 2020-12-18 12:16 | Diagnostic Imaging Report ---
INDICATION: Routine screening. Comparison is made with prior mammogram 03/09/2018 and 03/26/2016. 2-D and 3-D bilateral screening mammography was performed with CAD. Both breasts are heterogeneously dense, limiting the sensitivity of mammography. A nodular density in the lateral left breast appears stable. No dominant mass or malignant appearing microcalcifications are seen. Axillae are unremarkable. IMPRESSION: BI-RADS Category 2 No mammographic features suspicious for malignancy are identified. ACR BI-RADS Category 2: Benign findings. Result letter will be mailed to the patient. Note: At least 10% of breast cancer is not imaged by mammography. Dictated by: Dictated on workstation # [id number]
--- NOTE | 2020-12-18 12:48 | Diagnostic Imaging Report ---
PROCEDURE: Pelvic comp/transvaginal sonogram. TECHNIQUE: Complete transabdominal and transvaginal pelvic ultrasound was performed. In addition, limited pelvic Doppler was performed. INDICATION: Pelvic pain. FINDINGS: Uterus is anteverted measuring 7.9 x 3.7 x 5.2 cm. Endometrium is 6 mm in thickness. An IUD appears to be appropriately centered in the endometrial canal. No myometrial mass is identified. Cervix does contain multiple cysts consistent with nabothian cysts. Right ovary measures 2.7 x 2.3 x 2.4 cm and the left ovary measures 3.2 x 2.6 x 2.4 cm. There is blood flow to both ovaries. No adnexal mass or free fluid is detected. IMPRESSION: Appropriately located IUD. The transabdominal and transvaginal pelvic ultrasound is essentially unremarkable. Dictated by: Dictated on workstation # [id number]
== END ==
LOC: RAD 10:30
PROVIDERS: ATTEND Nurse Practitioner
DX: Z12.31 Encounter for screening mammogram for malignant neoplasm of breast (principal); R10.2 Pelvic and perineal pain
CPT/HCPCS: 76830; 76856; 77063; 77067

== ENCOUNTER → 2021-08-12 | Outpatient (CLI) | payer BC ==
[~2021-08-12] MED LIST changes: +CYCL10TA25 PO; -CYCL10TA9 PO
--- NOTE | 2021-08-12 14:52 | Diagnostic Imaging Report ---
PROCEDURE: US left lower extremity venous. TECHNIQUE: Multiple Real-time grayscale images were obtained over the left lower extremity in various projections. Additional duplex Doppler and color Doppler images were also obtained. INDICATION: Left leg swelling. FINDINGS: The veins of the left leg have good color filling and compressibility. There is phasic flow and a normal response to augmentation. There is a 3.8 x 1.2 x 1.7 cm Coreas's cyst in the popliteal fossa. IMPRESSION: Coreas's cyst. No evidence for deep vein thrombosis. Dictated by: Dictated on workstation # [id number]
== END ==
LOC: RAD 12:36
PROVIDERS: ATTEND Nurse Practitioner Family
DX: M71.22 Synovial cyst of popliteal space [Baker], left knee (principal)